=== PATIENT | male | born 1980 | race Caucasian/White ===

== ENCOUNTER → 2017-08-09 | Outpatient (CLI) | payer BC ==
--- NOTE | 2017-08-10 17:56 | MR ---
EXAMINATION TYPE: MR lumbar spine wo con DATE OF EXAM: 08/09/2017 COMPARISON: NONE HISTORY: Low back pain TECHNIQUE: Multiplanar, multisequence images of the lumbar spine were acquired. FINDINGS: The lumbar spine vertebral bodies maintain normal vertebral body height and alignment. Bone marrow si gnal is within normal limits. Disc desiccation is seen at L4-L5 and to a much lesser degree at L5-S1. Conus medullaris is unremarkable terminating at T12-L1. L1-L2: Normal disc appearance without desiccation. No herniation, protrusion or disc bulging. No ca nal stenosis is present. Foramina are patent bilaterally. L2-L3: Normal disc appearance without desiccation. No herniation, protrusion or disc bulging. No ca nal stenosis is present. Foramina are patent bilaterally. L3-L4: Normal disc appearance without desiccation. No herniation, protrusion or disc bulging. No ca nal stenosis is present. Foramina are patent bilaterally. L4-L5: There is a small right foraminal small disc herniation with annular tear overall creating mild right neural foraminal narrowing as it is superimposed upon a broad-based disc bulge but this disc h erniation does abut the L4 nerve root. Left neural foramen and spinal canal are patent. L5-S1: There is a small broad-based disc bulge without significant neural foraminal narrowing or spin al canal stenosis or spinal canal stenosis. IMPRESSION: 1. Small right disc foraminal disc herniation at L4-L5 abutting the L4 nerve root. No spinal canal st enosis or left-sided neural foraminal narrowing. 2. Small broad-based disc bulge at L5-S1 no canal stenosis.
== END | disposition home or self-care (01) ==
LOC: RADMRIMAIN 10:35
PROVIDERS: ATTEND Psychiatry & Neurology Pain Medicine
DX: M51.27 Other intervertebral disc displacement, lumbosacral region (principal); Z88.5 Allergy status to narcotic agent
CPT/HCPCS: 72148

== ENCOUNTER → 2019-04-07 | Outpatient (CLI) | payer BC ==
--- NOTE | 2019-04-08 07:19 | XR ---
EXAMINATION TYPE: XR chest 2V DATE OF EXAM: 04/07/2019 COMPARISON: 03/07/2016 HISTORY: Chest pain TECHNIQUE: Frontal and lateral views of the chest are obtained. FINDINGS: There is no focal air space opacity. No evidence for pneumothorax. No pleural effusion. The cardiac silhouette size is within normal limits. The osseous structures are grossly intact. IMPRESSION: 1. No acute cardiopulmonary process.
== END | disposition home or self-care (01) ==
LOC: RADXRMAIN 16:03
PROVIDERS: ATTEND Family Medicine
DX: R07.9 Chest pain, unspecified (principal)
CPT/HCPCS: 71046

== ENCOUNTER 2019-09-11 15:04 | Emergency (ER) | payer BC ==
[2019-09-11 15:12] VITALS: TEMP 100.1
--- NOTE | 2019-09-11 15:30 | ED ---
SOB HPI - General Chief Complaint: Shortness of Breath Stated Complaint: Chest tightness Time Seen by Provider: 09/11/19 15:14 Source: patient Mode of arrival: ambulatory Limitations: no limitations - History of Present Illness Initial Comments: 39-year-old male with history of hypertension, "hole in the heart as a child", current every day smoker, dyslipidemia presents emergency department today for chief complaint of progressive dyspnea and chest pressure x 1 week. Patient states for about the last week he has had progressive dyspnea and a tightness sensation in his chest. He states is constant and has been progressively worsening. He states he notices the dyspnea specifically on exertion he states that he is lying down and resting he does not notice this. Patient states it feels like he has a "chest cold". Patient states he has had some discomfort in his lower throat, body aches. Patient states he feels like he is sick. He states he has had negative stress testing in the past for chest pressure, but states this feels different more like he is coming down with something. Patient states that sometimes there is a sharper pain the chest with inspiration, denies IVDU, leg swelling, hemoptysis, history of DVT or pulmonary embolism, recent surgical procedures, recent travel. States his fiance has had a cough. Patient denies family history of CAD. Remaining ROS (-). Upon arrival patient appears well he is nondiaphoretic, febrile and does not appears in acute respiratory distress. Patient was concerned of Covid-19. - Related Data Home Medications Medication Instructions Recorded Confirmed Acetaminophen [Tylenol Extra 1,000 mg PO Q6H PRN 09/11/19 09/11/19 Strength] Lisinopril 20 mg PO DAILY 09/11/19 09/11/19 Allergies Allergy/AdvReac Type Severity Reaction Status Date / Time codeine Allergy Unknown Verified 09/11/19 17:09 Review of Systems ROS Statement: Those systems with pertinent positive or pertinent negative responses have been documented in the HPI. ROS Other: All systems not noted in ROS Statement are negative. Past Medical History Past Medical History: Fibromyalgia, Hypertension Additional Past Medical History / Comment(s): athritis, "hole in heart", MURMUR History of Any Multi-Drug Resistant Organisms: None Reported Past Surgical History: Ear Surgery Additional Past Surgical History / Comment(s): TUBES IN EARS Past Anesthesia/Blood Transfusion Reactions: No Reported Reaction Past Psychological History: No Psychological Hx Reported Smoking Status: Current every day smoker Past Alcohol Use History: None Reported Past Drug Use History: None Reported - Past Family History Father Family Medical History: Cancer Additional Family Medical History / Comment(s): THROAT CANCER, HEPATITIS -PT NOT SURE WHICH ONW, OA-KNEE REPLACMENTS Mother Family Medical History: Osteoarthritis (OA) Additional Family Medical History / Comment(s): KNEE REPLACEMENTS General Exam - General Exam Comments Initial Comments: General: The patient is awake and alert, in no distress Eye: +3 mm pupils are equal, round and reactive to light, extra-ocular movements are intact. No nystagmus. There is normal conjunctiva bilaterally. No signs of icterus. No photophobia Ears, nose, mouth and throat: There are moist mucous membranes and no oral lesions. Oropharynx was not erythematous there is no tonsillar enlargement exudates or lesions. Uvula midline. Tympanic membranes are not erythematous or is no effusions bulging or retraction. No tenderness to palpation of the mastoid. No anterior cervical lymphadenopathy. No tripoding, no drooling. Neck: The neck is supple, there is no tenderness or JVD. No nuchal rigidity negative Cardiovascular: There is a regular rate and rhythm. No murmur, rub or gallop is appreciated. Respiratory: Lungs are clear to auscultation, respirations are non-labored, breath sounds are equal. No wheezes, stridor, rales, or rhonchi. No retract ions or abdominal breathing. Gastrointestinal: Soft, non-distended, non-tender abdomen without masses or organomegaly noted. There is no rebound or guarding present. Bowel sounds are unremarkable. Musculoskeletal: Normal ROM, no tenderness. Strength 5/5. Sensation intact. Radial pulses equal bilaterally 2+. Neurological: A&O x 3. CN II-XII intact grossly, There are no obvious motor or sensory deficits. Coordination appears grossly intact. Speech appears normal, no muffling. Skin: Skin is warm and dry and no rashes or lesions are noted. No extremity edema Psychiatric: Cooperative Limitations: no limitations Course Vital Signs 09/11/19 09/11/19 09/11/19 15:09 15:12 15:29 Temperature 100.1 F H Pulse Rate 98 Respiratory 18 20 20 Rate Blood Pressure 181/91 O2 Sat by Pulse 99 Oximetry 09/11/19 09/11/19 09/11/19 15:44 16:00 16:12 Temperature Pulse Rate 80 80 72 Respiratory 20 18 16 Rate Blood Pressure 118/96 O2 Sat by Pulse 99 99 97 Oximetry 09/11/19 09/11/19 09/11/19 16:30 17:00 17:30 Temperature Pulse Rate 82 72 61 Respiratory 18 16 16 Rate Blood Pressure 110/59 138/65 138/66 O2 Sat by Pulse 99 97 98 Oximetry 09/11/19 09/11/19 09/11/19 18:00 18:30 19:00 Temperature Pulse Rate 63 58 L 79 Respiratory 16 18 18 Rate Blood Pressure 107/63 130/74 O2 Sat by Pulse 98 98 98 Oximetry 09/11/19 19:05 Temperature Pulse Rate 79 Respiratory 18 Rate Blood Pressure 130/74 O2 Sat by Pulse 98 Oximetry Medical Decision Making - Medical Decision Making 39-year-old male presented for fever ,body aches, chest tightness, sensation of chest cold concerned for covid. Fiance coughing at home. Lungs clear, No cough. Fever. CXR clear. VS reveal elevated BP patient has known history. Patient 2 tro ponins (-). Patient EKG no ST elevation or depression. Patient states he feels more so like he is getting sick rather than describing sensation as chest pain. Patient denies jaw pain, shortness of breath, arm pain. Patient denies any other complaints.Upon arrival patient oxygenating well no signs of acute respiratory distress. Throughout patient's visit patient shows no signs of acute respiratory distress. Oxygen saturation remains within acceptable limits. At this time given patient's laboratory studies stable. Troponin negative chest x- ray clear of infiltrates or effusions with no ST elevation or depression that patient is stable for discharge with close PCP f/u, strict return parameters for worsening SOB and off quarantine for 14 days as we cannot rule out Covid-19 infection. Patient discharged agreeable to care plan appearing well. Dr. Chavez agreeable to care plan. - Lab Data Result diagrams: 09/11/19 15:25 09/11/19 15:25 Lab Results 09/11/19 09/11/19 09/11/19 Range/Units 15:25 15:25 15:25 WBC 8.3 (3.8-10.6) k/uL RBC 4.60 (4.30-5.90) m/uL Hgb 14.6 (13.0-17.5) gm/dL Hct 42.4 (39.0-53.0) % MCV 92.1 (80.0-100.0) fL MCH 31.7 (25.0-35.0) pg MCHC 34.4 (31.0-37.0) g/dL RDW 12.4 (11.5-15.5) % Plt Count 235 (150-450) k/uL Neutrophils % 71 % Lymphocytes % 21 % Monocytes % 5 % Eosinophils % 1 % Basophils % 0 % Neutrophils # 5.9 (1.3-7.7) k/uL Lymphocytes # 1.7 (1.0-4.8) k/uL Monocytes # 0.4 (0-1.0) k/uL Eosinophils # 0.1 (0-0.7) k/uL Basophils # 0.0 (0-0.2) k/uL PT 10.0 (9.0-12.0) sec INR 1.0 (<1.2) APTT 25.3 (22.0-30.0) sec D-Dimer 0.20 (<0.60) mg/L FEU Sodium 137 (137-145) mmol/L Potassium 4.0 (3.5-5.1) mmol/L Chloride 105 (98-107) mmol/L Carbon Dioxide 25 (22-30) mmol/L Anion Gap 7 mmol/L BUN 15 (9-20) mg/dL Creatinine 0.92 (0.66-1.25) mg/dL Est GFR (CKD-EPI)AfAm >90 (>60 ml/min/1.73 sqM) Est GFR (CKD-EPI)NonAf >90 (>60 ml/min/1.73 sqM) Glucose 146 H (74-99) mg/dL Plasma Lactic Acid Lasha (0.7-2.0) mmol/L Calcium 9.7 (8.4-10.2) mg/dL Magnesium 1.9 (1.6-2.3) mg/dL Total Bilirubin 0.5 (0.2-1.3) mg/dL AST 27 (17-59) U/L ALT 33 (4-49) U/L Alkaline Phosphatase 73 (38-126) U/L Troponin I (0.000-0.034) ng/mL NT-Pro-B Natriuret Pep pg/mL Total Protein 7.4 (6.3-8.2) g/dL Albumin 4.6 (3.5-5.0) g/dL 09/11/19 09/11/19 09/11/19 Range/Units 15:25 15:25 15:25 WBC (3.8-10.6) k/uL RBC (4.30-5.90) m/uL Hgb (13.0-17.5) gm/dL Hct (39.0-53.0) % MCV (80.0-100.0) fL MCH (25.0-35.0) pg MCHC (31.0-37.0) g/dL RDW (11.5-15.5) % Plt Count (150-450) k/uL Neutrophils % % Lymphocytes % % Monocytes % % Eosinophils % % Basophils % % Neutrophils # (1.3-7.7) k/uL Lymphocytes # (1.0-4.8) k/uL Monocytes # (0-1.0) k/uL Eosinophils # (0-0.7) k/uL Basophils # (0-0.2) k/uL PT (9.0-12.0) sec INR (<1.2) APTT (22.0-30.0) sec D-Dimer (<0.60) mg/L FEU Sodium (137-145) mmol/L Potassium (3.5-5.1) mmol/L Chloride (98-107) mmol/L Carbon Dioxide (22-30) mmol/L Anion Gap mmol/L BUN (9-20) mg/dL Creatinine (0.66-1.25) mg/dL Est GFR (CKD-EPI)AfAm (>60 ml/min/1.73 sqM) Est GFR (CKD-EPI)NonAf (>60 ml/min/1.73 sqM) Glucose (74-99) mg/dL Plasma Lactic Acid Lasha 1.2 (0.7-2.0) mmol/L Calcium (8.4-10.2) mg/dL Magnesium (1.6-2.3) mg/dL Total Bilirubin (0.2-1.3) mg/dL AST (17-59) U/L ALT (4-49) U/L Alkaline Phosphatase (38-126) U/L Troponin I <0.012 (0.000-0.034) ng/mL NT-Pro-B Natriuret Pep 84 pg/mL Total Protein (6.3-8.2) g/dL Albumin (3.5-5.0) g/dL 09/11/19 Range/Units 18:15 WBC (3.8-10.6) k/uL RBC (4.30-5.90) m/uL Hgb (13.0-17.5) gm/dL Hct (39.0-53.0) % MCV (80.0-100.0) fL MCH (25.0-35.0) pg MCHC (31.0-37.0) g/dL RDW (11.5-15.5) % Plt Count (150-450) k/uL Neutrophils % % Lymphocytes % % Monocytes % % Eosinophils % % Basophils % % Neutrophils # (1.3-7.7) k/uL Lymphocytes # (1.0-4.8) k/uL Monocytes # (0-1.0) k/uL Eosinophils # (0-0.7) k/uL Basophils # (0-0.2) k/uL PT (9.0-12.0) sec INR (<1.2) APTT (22.0-30.0) sec D-Dimer (<0.60) mg/L FEU Sodium (137-145) mmol/L Potassium (3.5-5.1) mmol/L Chloride (98-107) mmol/L Carbon Dioxide (22-30) mmol/L Anion Gap mmol/L BUN (9-20) mg/dL Creatinine (0.66-1.25) mg/dL Est GFR (CKD-EPI)AfAm (>60 ml/min/1.73 sqM) Est GFR (CKD-EPI)NonAf (>60 ml/min/1.73 sqM) Glucose (74-99) mg/dL Plasma Lactic Acid Lasha (0.7-2.0) mmol/L Calcium (8.4-10.2) mg/dL Magnesium (1.6-2.3) mg/dL Total Bilirubin (0.2-1.3) mg/dL AST (17-59) U/L ALT (4-49) U/L Alkaline Phosphatase (38-126) U/L Troponin I <0.012 (0.000-0.034) ng/mL NT-Pro-B Natriuret Pep pg/mL Total Protein (6.3-8.2) g/dL Albumin (3.5-5.0) g/dL - EKG Data EKG Comments: Ventricular rate 81 bpm, MD interval 156 ms, QRS ration 98 ms, QT/QTC 358/415 milliseconds. This is normal sinus rhythm with sinus arrhythmia. There is no ST elevation or depression. There is borderline hyperacute appearance of the T wave in leads V2, V3 in comparison with previous EKGs, that of 2016. EKG personally reviewed by myself as well as my attending Dr. Chavez. Disposition Clinical Impression: Chest tightness, Fever Disposition: HOME SELF-CARE Condition: Good Instructions (If sedation given, give patient instructions): Chest Pain (ED), Upper Respiratory Infection (ED) Additional Instructions: Please use medication as discussed. Please follow-up with family doctor in the next 2 days, I recommend outpatient stress testing. Please return for increased shortness of breath or chest tightness. Please self quarantine for the next 14 days as discussed. Please return to emergency room if the symptoms increase or worsen or for any other concerns. Is patient prescribed a controlled substance at d/c from ED?: No Referrals: Peter Hugo MD [Primary Care Provider] - 1-2 days Time of Disposition: 18:56
[2019-09-11] MEDS ORDERED: ACETAMINOPHEN TAB 325 MG TAB PO STA (15:35)
[2019-09-11] MEDS ORDERED: SODIUM CHLORIDE 0.9% 1,000 ML IV ONE (15:36)
[2019-09-11 15:39] LABS: Basophils % (A) 0 %; Eosinophils # (A) 0.1 k/uL (0-0.7); Eosinophils % (A) 1 %; HCT 42.4 % (39.0-53.0); HGB 14.6 gm/dL (13.0-17.5); Lymphocytes # (A) 1.7 k/uL (1.0-4.8); Lymphocytes % (A) 21 %; MCH 31.7 pg (25.0-35.0); MCHC 34.4 g/dL (31.0-37.0); MCV 92.1 fL (80.0-100.0); Mean Platelet Volume 7.8; Monocytes # (A) 0.4 k/uL (0-1.0); Monocytes % (A) 5 %; Neutrophils # (A) 5.9 k/uL (1.3-7.7); Neutrophils % (A) 71 %; Platelet Count 235 k/uL (150-450); RDW 12.4 % (11.5-15.5); WBC 8.3 k/uL (3.8-10.6)
--- NOTE | 2019-09-11 15:45 | XR ---
EXAMINATION TYPE: XR chest 2V DATE OF EXAM: 09/11/2019 COMPARISON: Chest x-ray April 07, 2019. HISTORY: Chest pain for a week. Difficulty in breathing. TECHNIQUE: Frontal and lateral views of the chest are obtained. FINDINGS: Overlying EKG leads are now present. There is no focal air space opacity, pleural effusion , or pneumothorax seen. The cardiac silhouette size remains within normal limits. The osseous stru ctures are intact. IMPRESSION: No acute cardiopulmonary process. No significant change from prior.
[2019-09-11 15:52] LABS: D-Dimer 0.2 mg/L FEU (<0.60); Partial Thromboplastin Time 25.3 sec (22.0-30.0)
[2019-09-11 16:00] LABS: ALT 33 U/L (4-49); AST 27 U/L (17-59); African American GFR (CKD) >90 (>60 ml/min/1.73 sqM); Albumin 4.6 g/dL (3.5-5.0); Alkaline Phosphatase 73 U/L (38-126); Anion Gap 7 mmol/L; Blood Urea Nitrogen 15 mg/dL (9-20); Calcium 9.7 mg/dL (8.4-10.2); Carbon Dioxide 25 mmol/L (22-30); Chloride 105 mmol/L (98-107); Glucose 146 mg/dL (74-99); Magnesium 1.9 mg/dL (1.6-2.3); Non-African American GFR(CKD) >90 (>60 ml/min/1.73 sqM); Sodium 137 mmol/L (137-145); Total Bilirubin 0.5 mg/dL (0.2-1.3); Total Protein 7.4 g/dL (6.3-8.2)
[2019-09-11 19:05] VITALS: BP 130/74; PULSE 79; RESP 18
== END 2019-09-11 19:25 | disposition home or self-care (01) ==
LOC: EC 15:04
DX: R07.89 Other chest pain (principal); R50.9 Fever, unspecified; R06.02 Shortness of breath; R09.89 Other specified symptoms and signs involving the circulatory and respiratory systems; I10 Essential (primary) hypertension; F17.200 Nicotine dependence, unspecified, uncomplicated; M19.90 Unspecified osteoarthritis, unspecified site; Z88.5 Allergy status to narcotic agent; Z79.899 Other long term (current) drug therapy
CPT/HCPCS: 36415; 85379; 83880; 80053; 83605; 83735; 84484; 85025; 85610; 85730; 87040; 71046; 99285; 96365; J0696

== ENCOUNTER 2021-05-29 13:47 | Emergency (ER) | payer BC ==
[2021-05-29 15:37] VITALS: BP 149/76; PULSE 81; RESP 18; TEMP 97.8
--- NOTE | 2021-05-29 17:56 | ED ---
General Adult HPI - General Chief complaint: Extremity Problem,Nontraumatic Stated complaint: L&R Leg swelling/pain Time Seen by Provider: 05/29/21 17:44 Source: patient, RN notes reviewed, old records reviewed Mode of arrival: ambulatory Limitations: no limitations - History of Present Illness Initial comments: This is a well-appearing 40-year-old male, alert and oriented 4, presents to the emergency room with complaints of bilateral lower extremity swelling for the past couple months. Patient states he did see his primary care doctor who told him it was likely fluid retention and put him on a water pill. Patient states he has not really been taking it as scheduled. He states that he's been working and on his feet more and the swelling is worse at the end of the day. He states in the morning after sleeping and having them elevated it is better. He is concerned for blood clots and there is a family history of blood clots. Patient has a history of chronic back pain, hypertension and fibromyalgia. -: month(s) (2) Location: left, right, lower extremity Radiation: non-radiation Severity scale (1-10): 6 Quality: constant, other (heavy) Improves with: other (elevation) Worsens with: other (ambulation) Associated Symptoms: denies other symptoms - Related Data Home Medications Medication Instructions Recorded Confirmed Acetaminophen [Tylenol Extra 1,000 mg PO Q6H PRN 09/11/19 09/11/19 Strength] lisinopriL 20 mg PO DAILY 09/11/19 09/11/19 Allergies Allergy/AdvReac Type Severity Reaction Status Date / Time codeine Allergy Unknown Verified 05/29/21 15:36 Review of Systems ROS Statement: Those systems with pertinent positive or pertinent negative responses have been documented in the HPI. ROS Other: All systems not noted in ROS Statement are negative. Past Medical History Past Medical History: Fibromyalgia, Hypertension Additional Past Medical History / Comment(s): athritis, "hole in heart", MURMUR History of Any Multi-Drug Resistant Organisms: None Reported Past Surgical History: Ear Surgery Additional Past Surgical History / Comment(s): TUBES IN EARS Past Anesthesia/Blood Transfusion Reactions: No Reported Reaction Past Psychological History: No Psychological Hx Reported Smoking Status: Current every day smoker Past Alcohol Use History: None Reported Past Drug Use History: None Reported - Past Family History Father Family Medical History: Cancer Additional Family Medical History / Comment(s): THROAT CANCER, HEPATITIS -PT NOT SURE WHICH ONW, OA-KNEE REPLACMENTS Mother Family Medical History: Osteoarthritis (OA) Additional Family Medical History / Comment(s): KNEE REPLACEMENTS General Exam Limitations: no limitations General appearance: alert, in no apparent distress Head exam: Present: atraumatic, normocephalic, normal inspection Eye exam: Present: normal appearance, EOMI ENT exam: Present: normal exam, normal oropharynx, mucous membranes moist Respiratory exam: Present: normal lung sounds bilaterally. Absent: respiratory distress, wheezes, rales, rhonchi, stridor, chest wall tenderness, accessory muscle use, decreased breath sounds Cardiovascular Exam: Present: regular rate, normal rhythm, normal heart sounds. Absent: systolic murmur, diastolic murmur, rubs, gallop, clicks, JVD Left Lower Leg exam: Present: full ROM, tenderness, swelling (shiny hyper-pigmented skin to BLLE with hair loss no ulcerations noted). Absent: abrasion, erythema, palpable cord, Homans' sign Ankle exam: Present: full ROM. Absent: erythema Foot/Toe exam: Present: full ROM Neurovascular tendon exam: Present: no vascular compromise. Absent: pulse deficit, abnormal cap refill, pallor, foot drop Right Lower Leg exam: Present: full ROM, tenderness, swelling. Absent: erythema, palpable cord, Homans' sign Ankle exam: Present: full ROM Foot/Toe exam: Present: full ROM Neurovascular tendon exam: Present: no vascular compromise. Absent: pulse deficit, abnormal cap refill, extremity cold to touch, pallor, foot drop Neurological exam: Present: alert, oriented X3 Psychiatric exam: Present: normal affect, normal mood, anxious Skin exam: Present: warm, dry, intact, normal color. Absent: rash, cyanosis, diaphoretic, petechiae, pallor Course Vital Signs 05/29/21 15:34 Temperature 97.8 F Pulse Rate 81 Respiratory 18 Rate Blood Pressure 149/76 O2 Sat by Pulse 98 Oximetry Medical Decision Making - Medical Decision Making Patient complains of bilateral leg heaviness and increased leg swelling at the end of the day for a couple months. He states it is improved in the morning after elevation. He has strong pedal pulses, hyperpigmented skin to bilateral ankles. He has seen his primary care doctor for this leg swelling in the past and was put on hypertensive medications with diuretic however he states he has not been taking it as scheduled. Ultrasound of the bilateral lower extremity shows no evidence of DVT. Patient was advised to follow-up with his primary care doctor and take the medications as prescribed to help with leg edema. Directed to discuss with his primary care doctor following up with a vascular doctor. Case discussed with Dr. Luu Disposition Clinical Impression: Edema of lower extremity Disposition: HOME SELF-CARE Condition: Good Instructions (If sedation given, give patient instructions): Leg Edema (ED) Additional Instructions: Continue taking medication as prescribed by your primary care doctor. Follow-up with your doctor this week. Return to emergency room if any new or concerning symptoms. Is patient prescribed a controlled substance at d/c from ED?: No Referrals: Peter Hugo MD [Primary Care Provider] - 1-2 days Time of Disposition: 19:43
--- NOTE | 2021-05-29 19:26 | US ---
EXAMINATION TYPE: US venous doppler duplex LE DATE OF EXAM: 05/29/2021 6:50 PM COMPARISON: NONE CLINICAL HISTORY: pain. Pain and swelling. No hx of DVT. Patient not taking blood thinners. SIDE PERFORMED: Bilateral TECHNIQUE: The lower extremity deep venous system is examined utilizing real time linear array sonog sanchez with graded compression, doppler sonography and color-flow sonography. VESSELS IMAGED: Common Femoral Vein Deep Femoral Vein Greater Saphenous Vein * Femoral Vein Popliteal Vein Small Saphenous Vein * Proximal Calf Veins (* superficial vessels) Exam is slightly limited due to edema. Right Leg: Slight color defect within distal femoral vein, possibly due to edema. All veins imaged a ppear to compress. Left Leg: No evidence of DVT in veins imaged at this time. IMPRESSION: No evidence of DVT in the bilateral lower extremities
== END 2021-05-29 20:40 | disposition home or self-care (01) ==
LOC: EC 13:47
DX: R60.0 Localized edema (principal); F17.200 Nicotine dependence, unspecified, uncomplicated; I10 Essential (primary) hypertension; Z88.5 Allergy status to narcotic agent; Z79.899 Other long term (current) drug therapy
CPT/HCPCS: 93970; 99283

== ENCOUNTER 2022-04-20 14:07 | Emergency (ER) | payer BC ==
[2022-04-20 14:32] VITALS: TEMP 98.2
--- NOTE | 2022-04-20 15:36 | ED ---
ENT HPI - General Chief complaint: Dental/Oral Stated complaint: Tooth abcess, facial swelling Time Seen by Provider: 04/20/22 14:47 Source: patient, RN notes reviewed Mode of arrival: ambulatory Limitations: no limitations - History of Present Illness Initial comments: Patient is a 41 year old male presenting to the ER with a chief complaint of tooth pain and left cheek swelling. He states he chipped his left incisor last week and is scheduled with his dentist Friday. He reports he first noticed the swelling Friday. He took left over amoxicillin from a previous infection when he first noticed the swelling. He denies fevers or chills. Denies visual changes, ear pain, or swallowing difficulties. - Related Data Home Medications Medication Instructions Recorded Confirmed Acetaminophen [Tylenol Extra 1,000 mg PO Q6H PRN 09/11/19 09/11/19 Strength] lisinopriL 20 mg PO DAILY 09/11/19 09/11/19 Previous Rx's Medication Instructions Recorded Ibuprofen [Motrin] 600 mg PO Q8HR PRN #20 tab 04/20/22 Penicillin V Potassium [Pen Vee K] 500 mg PO QID #40 tablet 04/20/22 Allergies Allergy/AdvReac Type Severity Reaction Status Date / Time codeine Allergy Unknown Verified 04/20/22 14:32 Review of Systems ROS Statement: Those systems with pertinent positive or pertinent negative responses have been documented in the HPI. ROS Other: All systems not noted in ROS Statement are negative. Past Medical History Past Medical History: Hypertension Additional Past Medical History / Comment(s): athritis, "hole in heart", MURMUR History of Any Multi-Drug Resistant Organisms: None Reported Past Surgical History: Ear Surgery Additional Past Surgical History / Comment(s): TUBES IN EARS Past Anesthesia/Blood Transfusion Reactions: No Reported Reaction Past Psychological History: No Psychological Hx Reported Smoking Status: Current every day smoker Past Alcohol Use History: None Reported Past Drug Use History: None Reported - Past Family History Father Family Medical History: Cancer Additional Family Medical History / Comment(s): THROAT CANCER, HEPATITIS -PT NOT SURE WHICH ONW, OA-KNEE REPLACMENTS Mother Family Medical History: Osteoarthritis (OA) Additional Family Medical History / Comment(s): KNEE REPLACEMENTS General Exam Limitations: no limitations Eye exam: Present: periorbital swelling Pupils: Present: normal accommodation ENT exam: Present: other (missing teeth) Neck exam: Present: normal inspection. Absent: tenderness, meningismus, lymphadenopathy Respiratory exam: Present: normal lung sounds bilaterally. Absent: respiratory distress, wheezes, rales, rhonchi, stridor Cardiovascular Exam: Present: regular rate, normal rhythm, normal heart sounds. Absent: systolic murmur, diastolic murmur, rubs, gallop, clicks GI/Abdominal exam: Present: soft, normal bowel sounds. Absent: distended, tenderness, guarding, rebound, rigid Extremities exam: Present: normal inspection, full ROM, normal capillary refill. Absent: tenderness, pedal edema, joint swelling, calf tenderness Neurological exam: Present: alert, oriented X3, CN II-XII intact Psychiatric exam: Present: normal affect, normal mood Skin exam: Present: erythema (left cheek), other (swelling and warmth of left cheek) Course Vital Signs 04/20/22 14:29 Temperature 98.2 F Pulse Rate 78 Respiratory 18 Rate Blood Pressure 148/83 O2 Sat by Pulse 98 Oximetry Medical Decision Making - Medical Decision Making 41-year-old presented for dental pain. Patient has no drainable abscess. Patient we continue antibiotics has appointment Friday for follow-up return parameters were discussed. Disposition Clinical Impression: Dental abscess, Toothache Disposition: HOME SELF-CARE Condition: Stable Instructions (If sedation given, give patient instructions): Toothache (ED) Additional Instructions: Please return to the Emergency Department if symptoms worsen or any other concerns. Prescriptions: Ibuprofen [Motrin] 600 mg PO Q8HR PRN #20 tab PRN Reason: Pain Penicillin V Potassium [Pen Vee K] 500 mg PO QID #40 tablet Is patient prescribed a controlled substance at d/c from ED?: No Referrals: Peter Hugo MD [Primary Care Provider] - 1-2 days Time of Disposition: 15:37
[2022-04-20] MEDS ORDERED: traMADol 50 MG STARTER PACK 3 TAB BTL PO STA (15:37)
[2022-04-20 15:39] VITALS: BP 148/80; PULSE 68; RESP 16
[2022-04-20] MEDS ORDERED: HYDROcodone/APAP 5-325MG 1 EACH TAB PO STA (15:39)
== END 2022-04-20 16:04 | disposition home or self-care (01) ==
LOC: EC 14:07
DX: K04.7 Periapical abscess without sinus (principal); I10 Essential (primary) hypertension; F17.200 Nicotine dependence, unspecified, uncomplicated; Z88.5 Allergy status to narcotic agent; Z79.899 Other long term (current) drug therapy
CPT/HCPCS: 99283

== ENCOUNTER 2024-05-24 15:19 | Emergency (ER) | payer OTHER, BC ==
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
[2024-05-24] MEDS: ORPHENADRINE 30 MG/ML 2 ML VIAL IM STA (16:42)
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
[2024-05-24 17:31] VITALS: BP 149/82; PULSE 84; RESP 19; TEMP 98.5
== END 2024-05-24 17:31 | disposition home or self-care (01) ==
LOC: EC 15:19
DX: S23.41XA Sprain of ribs, initial encounter (principal); F17.200 Nicotine dependence, unspecified, uncomplicated; Z88.5 Allergy status to narcotic agent; V49.40XA Driver injured in collision with unspecified motor vehicles in traffic accident, initial encounter; Y92.410 Unspecified street and highway as the place of occurrence of the external cause
CPT/HCPCS: 71101; 99284; 96372; J2360